=== PATIENT | male | born 1950 | race Caucasian/White ===

== ENCOUNTER → 2018-02-26 | Emergency (ER) | payer MEDICARE ==
[~2018-02-26] VITALS: Ht 182.9 cm; Wt 92.5 kg
[~2018-02-26] MED LIST: ALENDRONATE SOD10 MG PO; HYDROCODON-ACE1 EA11 PO; NEURONTIN300 MG PO; NORCO 5-325 TA1 EACH PO; VITAMIN D-32000 UNIT PO; XANAX0.5 MG PO
== END ==
LOC: ED 10:55
PROC: 2W3DX1Z Immobilization of Left Lower Arm using Splint (ICD-10-PCS; principal; 2018-02-26)
DX: S52.502A Unspecified fracture of the lower end of left radius, initial encounter for closed fracture (principal); Z91.09 Other allergy status, other than to drugs and biological substances; Z79.899 Other long term (current) drug therapy; W22.8XXA Striking against or struck by other objects, initial encounter
CPT/HCPCS: 29125; 73110; 99283

== ENCOUNTER 2018-03-09 06:55 | Day surgery (SDC) | payer MEDICARE ==
[~2018-03-09] VITALS: Ht 182.9 cm; Wt 92.5 kg
[~2018-03-09 06:55] MED LIST changes: -HYDROCODON-ACE1 EA11 PO; -NEURONTIN300 MG PO
[2018-03-09] MEDS ORDERED: NEURONTIN300 MG PO (10:19)
[2018-03-09] MEDS ORDERED: HYDROCODON-ACE1 EA11 PO (10:19)
--- NOTE | 2018-03-09 10:28 | NUR ---
03/09/18 1028 Pam Ramsey 1018 PT ARRIVED IN PACU SLEEPY WITH NO RESPONSE TO TACTILE STIMULI.
--- NOTE | 2018-03-09 11:51 | NUR ---
PT RESTING IN BED-ALERT, ORIENTED AND SUPPORTED LYRIC. HE IS READY TO "GET THHIS OVER WITH", PT STATED. HE CAN USE HIS FINGERS, BUT NOT HIS THUMB. GOOD VISIT, PT REQUESTED PRAYER-WILL FOLLOW NEEDED
--- NOTE | 2018-03-09 12:30 | NUR ---
LE 1100 PT RETURNS FROM PACU. PT AWAKE TALKING WITH AND STAFF. PT DENIES PAIN OR NAUSEA. PT NOTES THAT FINGERS ON OPERATIVE ARM REMAIN NUMB. CMS INTACT. PT UP TO RESTOOM WITH STANDBY ASSIST,TOLERATED WELL. ABLE TO VOID. PT BACK TO BED. COFFEE GIVEN. PT EATING SANDWICH BROUGHT BY . NO FURTHER NEEDS AT THIS TIME, CALL LIGHT IN REACH.
--- NOTE | 2018-03-09 12:32 | NUR ---
LE 1210 IN TO CHECK ON PT, PT DOING WELL. DENIES PAIN AND NAUSEA. STATES HE WOULD LIKE TO GO HOME. PT HAS MEET CRITERIA FOR DC. IV DC'D. PT DRESSED WITH ASSIST FROM , TOLERATED WELL. DISCHARGE INSTRUCTIONS GIVEN. PT WHEELED OUT OF UNIT BY VOLUNTEER.
--- NOTE | 2018-03-10 07:41 | OR ---
[facility] [address], [place] [address] Signed DATE OF OPERATION: 03/09/2018 SURGEON: Osman Schroeder MD PREOPERATIVE DIAGNOSIS: Displaced distal radius fracture left. POSTOPERATIVE DIAGNOSIS: Displaced distal radius fracture left. PROCEDURE PERFORMED: Open reduction and internal fixation, left wrist. ANESTHESIA: General. REGISTERED PUBLIC SURVEYOR: Annetta Treviño PA-C. Annetta was present in critical positioning, retraction, wound closure, and casting. TOURNIQUET TIME: 55 minutes. IMPLANTS: Two 3.5, four hole wide plate and screws. BRIEF HISTORY: Sepideh is a 67-year-old gentleman, who was [employer] weekend, moving calves when he got run over and knocked to the ground. He twisted his knee and injured his wrist. Radiographs in the ER showed a distal radius fracture that was displaced and angulated. Risks and benefits of operative treatment discussed with him. He elected to proceed. DESCRIPTION OF PROCEDURE: Once consent was obtained. He was taken to operating room. After adequate anesthesia, he was placed on operating room table and all downside pressure points well padded. The left arm was placed in well-padded proximal arm tourniquet and prepped and draped in standard sterile fashion, an exsanguinated using an Esmarch bandage. Tourniquet inflated to 200 mmHg. Standard volar approach was taken through skin and subcutaneous tissue. The FCR was identified retracted and protected. The FCR sheath was opened longitudinally. The pronator was identified and split longitudinally along its radial border and Electronically Signed By: OSMAN SCHROEDER MD 03/10/18 0741 PATIENT NAME: SEPIDEH WHITE OPERATIVE REPORT DATE OF : 48 REPORT #: [id number] PHYSICIAN: OSMAN SCHROEDER MD PCP: ABIEL CONRAD DO REPORT IS CONFIDENTIAL AND NOT TO BE RELEASED WITHOUT AUTHORIZATION [facility] [address], [place] [address] Signed elevated to allow visualization the fracture. The fracture was then reduced and held in position. Checked using image intensifier. The 3.5 plate was then selected and placed on the radius in the center position and screw placed in longitudinal hole. The screw was drilled in used to hold the plate in position and was then adjusted using the image intensifier, total was well-seated. The distal screws were then placed sequentially, 2 more screws were placed in the longitudinal portion of the plate. Excellent reduction screw length and plate placement were identified on the image intensifier. The wound was closed again with antibiotic solution. The pronator was closed back over the plate using 2-0 Monocryl for the FCR sheath and subcutaneous tissue closed using 3-0 Monocryl and 3-0 Prolene for the skin. The Steri-Strips was applied. The wound was then dressed with Adaptic, gauze and a radial gutter splint. He tolerated the procedure well. All sponge, needle, and instrument counts were correct. Osman Schroeder MD BA/AZEEM /[id number] cc: Abiel Conrad DO Copies: ABIEL CONRAD DO ~ Electronically Signed By: OSMAN SCHROEDER MD 03/10/18 0741 PATIENT NAME: SEPIDEH WHITE OPERATIVE REPORT DATE OF : 48 REPORT #: [id number] PHYSICIAN: OSMAN SCHROEDER MD PCP: ABIEL CONRAD DO REPORT IS CONFIDENTIAL AND NOT TO BE RELEASED WITHOUT AUTHORIZATION
== END 2018-03-09 12:25 | disposition home or self-care (01) ==
LOC: OPS 06:55 → DS 06:55 → OPS 08:45
PROVIDERS: Specialist
PROC: 0PSJ04Z Reposition Left Radius with Internal Fixation Device, Open Approach (ICD-10-PCS; principal; 2018-03-09 08:45)
DX: S52.532A Colles' fracture of left radius, initial encounter for closed fracture (principal); Z91.041 Radiographic dye allergy status; Z79.899 Other long term (current) drug therapy; W55.22XA Struck by cow, initial encounter
CPT/HCPCS: 01830; 64417; 73100; 76942; C1713; J0690; J1100; J1885; J2250; J2405; J2704; J2795; J3010; J7120

== ENCOUNTER 2021-03-24 08:54 | Emergency (ER) | payer MEDICARE, BC ==
[~2021-03-24] VITALS: Ht 182.9 cm; Wt 92.5 kg
[~2021-03-24 08:54] MED LIST changes: +HYDROCODON-ACE1 EA11 PO; +NEURONTIN300 MG PO
== END 2021-03-24 10:39 | disposition home or self-care (01) ==
LOC: ED 08:54
DX: S61.212A Laceration without foreign body of right middle finger without damage to nail, initial encounter (principal); Z23 Encounter for immunization; W26.8XXA Contact with other sharp object(s), not elsewhere classified, initial encounter; Z87.891 Personal history of nicotine dependence; Z88.8 Allergy status to other drugs, medicaments and biological substances; Z79.899 Other long term (current) drug therapy
CPT/HCPCS: 12001; 73140; 90471; 90715; 99283-25